=== PATIENT | male | born 1990 | race Caucasian/White ===

== ENCOUNTER 2018-09-29 20:17 | Emergency (ER) | payer OTHER ==
[~2018-09-29] VITALS: Ht 188 cm; Wt 86.0 kg
[2018-09-29 20:22] VITALS: Ht 188 cm; Wt 86.0 kg
[2018-09-29] MEDS ORDERED: KETOROLAC 30 MG INJ IM STA (22:17)
[2018-09-29] MEDS ORDERED: ACET500C5 PO (22:20)
[2018-09-29] MEDS ORDERED: LIDOCAINE 1% (MDV) 20 ML INJ SC ONE (22:30)
[2018-09-29] MEDS ORDERED: DIPHTH/TET/ACEL PERTUSS (ADULT) 0.5 ML VIAL IM* ONE (22:30)
[2018-09-29 22:44] VITALS: BP 127/82; PULSE 63; RESP 16
--- NOTE | 2018-09-30 00:29 | ERD ---
ER Documentation Chief Complaint Chief Complaint R ARM PAIN, HEAD PAIN S/P FALL FROM WALL 2 DAYS AGO HPI Patient is 27-year-old male presenting to the ED for head pain secondary to a fall that happened yesterday. Patient did not lose consciousness. Patient states that his head still hurts. Patient states he was trying to jump over a wall and he fell. Patient is AAO x4. He states he has no allergies to medication. He states he has no past medical history. He states his pain is an 8 out of 10 and is unilateral and does not radiate. Patient points to the right side of his head. When his last tetanus shot was. ROS All systems reviewed and are negative except as per history of present illness. Medications Home Meds Active Scripts Acetaminophen* (Tylophen*) 500 Mg Capsule, 1 CAP PO Q6H PRN for PAIN AND OR ELEVATED TEMP, #20 CAP Prov:IAN HAMPTON PA-C 09/29/18 Allergies Allergies: Coded Allergies: No Known Allergy (Unverified , 09/29/18) PMhx/Soc Medical and Surgical Hx: pt denies Medical Hx, pt denies Surgical Hx Hx Alcohol Use: No Hx Substance Use: No Hx Tobacco Use: No Smoking Status: Never smoker FmHx Family History: No diabetes, No coronary disease, No other Physical Exam Vitals Vital Signs Date Temp Pulse Resp B/P (MAP) Pulse Ox O2 O2 Flow FiO2 Time Delivery Rate 09/29/18 63 16 127/82 97 Room Air 22:44 (97) 09/29/18 97.9 78 18 139/84 97 20:22 (102) Physical Exam Const: No acute distress Head: Atraumatic Eyes: Normal Conjunctiva ENT: Normal External Ears, Nose and Mouth. Neck: Full range of motion. No meningismus. Resp: Clear to auscultation bilaterally Cardio: Regular rate and rhythm, no murmurs Abd: Soft, non tender, non distended. Normal bowel sounds Skin: Small abrasions located on bilateral wrist right shoulder right knee Back: No midline or flank tenderness Ext: No cyanosis, or edema Neur: Awake and alert Psych: Normal Mood and Affect Results 24 hrs Current Medications Medications Dose Sig/Scott Start Time Status Last (Trade) Ordered Route PRN Stop Time Admin Dose Reason Admin Lidocaine 20 ml ONCE ONCE 09/29/18 DC (Xylocaine SC 22:30 1% (Mdv) 20 09/29/18 22:31 ml) Ketorolac 30 mg ONCE STAT 09/29/18 DC 09/29/18 Tromethamine IM 22:17 22:30 (Toradol) 09/29/18 22:19 Diphtheria/ 0.5 ml ONCE ONCE 09/29/18 DC 09/29/18 Tetanus/Acell IM* 22:30 22:30 Pertussis 09/29/18 22:31 (Adacel) Procedures/MDM Medications given in ER: Toradol Tdap Patient tolerated medication well with no adverse reactions. Patient reported improvement in pain. Medical decision making: Patient is 27-year-old male who fell climbing a wall yesterday and hit his head. Patient is AO x4. With a GCS of 15. Patient did not lose consciousness just lost his balance. Patient is able to ambulate without pain. Patient does has mild abrasions on his extremities. The abrasions are very superficial and not deep do not need cleaning irrigation or suture repair. Patient does not remember when his last tetanus shot was. Patient's tetanus was updated in the ED. Patient was given Toradol for pain. Patient's neuro exam was unremarkable. At this time I have low suspicion for subdermal hematoma, epidural hematoma, meningitis, cervical fracture, TIA, CVA, neurovascular injury, sepsis. Patient is not on any blood thinners or any medications. The patient has suffered from minor blunt head trauma that occurred on the following data and time: August 29, PM The patient has a GCS of [address] was not performed based on the 2008 [facility] Clinical Policy on Adult Head Trauma. On reevaluation the patient appears to be doing much better states the Toradol has helped. Patient states the pain is now a 2 out of 10. I advised this patient that he may have suffered a mild c oncussion and advised him that he needs to return to ER immediately if he develops nausea vomiting confusion worsening head pain. I advised the patient that he should take it easy over the next few days. The patient is in agreement to the treatment plan and plans to follow-up with his primary care provider in 1 to 2 days regarding this visit. All questions were answered upon discharge Prescription for home: Acetaminophen I have discussed with the patient proper use and common side effects to expert with the medication . I advised the patient/family to speak with the pharmacist dispensing the medication to be advised of any potential drug interactions with other medication or supplements they may be taking. Discharge: At this time, patient is stable for discharge and outpatient management. I have instructed the patient to follow-up with his\her primary care physician in 1 to 2 days. I have discussed with the patient the possibility of needing to see a specialist for further work-up and imaging studies if symptoms persist. I have instructed the patient to promptly return to the ER for any new or worsening symptoms including increased pain, fever, nausea, vomiting, weakness or LOC. The patient and\or family expressed understanding of and agreement with this plan. All questions were answered. Home care instructions were provided. Disclaimer: Inadvertent spelling and grammatical errors are likely due to EHR\dictation software use and do not reflect on the overall quality of patient care. Also, please note that the electronic time recorded on the note does not necessarily reflect the actual time of the patient encounter. Departure Diagnosis: Primary Impression: Post-concussion syndrome Condition: Stable Patient Instructions: Concussion in adults Additional Instructions: Call your primary care doctor TOMORROW for an appointment during the next 1-2 days.See the doctor sooner or return here if your condition worsens before your appointment time. IAN HAMPTON PA-C Sep 30, 2018 00:29
== END 2018-09-29 22:46 | disposition home or self-care (01) ==
LOC: FTE 20:17
DX: R51 Headache (principal); F07.81 Postconcussional syndrome; R40.2142 Coma scale, eyes open, spontaneous, at arrival to emergency department; R40.2252 Coma scale, best verbal response, oriented, at arrival to emergency department; R40.2362 Coma scale, best motor response, obeys commands, at arrival to emergency department; Z23 Encounter for immunization
CPT/HCPCS: 90715; J1885; Z7610; 90471; 96372